=== PATIENT | male | born 1975 | race Caucasian/White ===

== ENCOUNTER 2017-07-10 20:24 | Emergency (ER) | payer OTHER | END 2017-07-10 21:35 | disposition home or self-care (01) | LOC: D.ER 20:24 | DX: J11.1 Influenza due to unidentified influenza virus with other respiratory manifestations (principal); I50.9 Heart failure, unspecified; J44.9 Chronic obstructive pulmonary disease, unspecified; I10 Essential (primary) hypertension ==